=== PATIENT | female | born 1970 | race Caucasian/White ===

== ENCOUNTER 2018-11-29 12:21 | Emergency (ER) | payer BC, OTHER ==
[2018-11-29 12:29] VITALS: BP 137/72
--- NOTE | 2018-11-29 12:31 | UC ---
Throat Pain/Nasal Wilber HPI - HPI Summary HPI Summary: 48 y/o female presents to the urgent care c/o sinus congestion, pressure, and drainage w/ yellowish and bloody drainage for the past 6 days. Pt report she has taken OTC medications, Aleve, Nyquil PO and Alkazelters plus w/o any improvement. Sinus pain is 5/10 which improves w/ the Aleve. Pt has subjective fever at home the first 2 days of symptoms. Pt denies SOB, wheezing, chest pain , abdominal pain, N/V/D. - History of Current Complaint Chief Complaint: UCGeneralIllness Stated Complaint: SINUS COMPLAINT Time Seen by Provider: 11/29/18 12:29 Hx Obtained From: Patient Hx Last Menstrual Period: 2 weeks ago ?: No Onset/Duration: Gradual Onset, Lasting Days - 6 days, Still Present, Worse Since - yesterday Severity: Moderate Pain Intensity: 5 Pain Scale Used: 0-10 Numeric Cough: Nonproductive Associated Signs & Symptoms: Positive: Sinus Discomfort, Nasal Discharge - yellowish and bloody, Fever - subjective at home. Negative: Dysphagia, Wheezing - Epiglottits Risk Factors Epiglottis Risk Factors: Negative - Allergies/Home Medications Allergies/Adverse Reactions: Allergies Allergy/AdvReac Type Severity Reaction Status Date / Time ampicillin Allergy Unknown Verified 11/29/18 12:30 Reaction Details Sulfa (Sulfonamide Allergy See Comment Verified 11/29/18 12:30 Antibiotics) Home Medications: Home Medications Irbesartan 150 mg PO DAILY 11/29/18 [History Confirmed 11/29/18] Levothyroxine TAB* [Synthroid 100 MCG TAB*] 100 mcg PO DAILY 11/29/18 [History Confirmed 11/29/18] Rosuvastatin Calcium 10 mg PO DAILY 11/29/18 [History Confirmed 11/29/18] PMH/Surg Hx/FS Hx/Imm Hx Previously Healthy: Yes Endocrine History: Hypothyroidism, Dyslipidemia Cardiovascular History: Hypertension - Surgical History Surgical History: None - Family History Known Family History: Positive: Hypertension - Social History Occupation: Employed Full-time Lives: With Family Alcohol Use: None Substance Use Type: None Smoking Status (MU): Never Smoked Tobacco Review of Systems All Other Systems Reviewed And Are Negative: Yes Constitutional: Positive: Fever - low subjective fever at home Skin: Positive: Negative Eyes: Positive: Negative ENT: Positive: Sore Throat, Ear Ache - B/L ear pressure, Nasal Discharge - yellowish w/ bloody discharge, Sinus Congestion, Sinus Pain/Tenderness Respiratory: Positive: Cough - dry Cardiovascular: Positive: Negative Gastrointestinal: Positive: Negative Genitourinary: Positive: Negative Motor: Positive: Negative Neurovascular: Positive: Negative Musculoskeletal: Positive: Negative Neurological: Positive: Headache Psychological: Positive: Negative Is Patient Immunocompromised?: No Physical Exam - Summary Physical Exam Summary: Vitals: reviewed General: Well developed, well-nourished female patient with NAD. Head and face: Normocephalic and atraumatic, Positive tenderness over the frontal and maxillary sinuses.. Eyes: PERRLA, EOMI x 2. Normal conjunctiva. No eye discharge. ENT: Ears and TM with normal limits. Nose: edematous and erythematous nasal mucosa with with yellowish discharge and erythematous mucosa. Pharynx with erythema, no exudate. yellowish moderate PND Neck: Supple, no JVD, no carotid bruits and no lymphadenopathy. Lungs: clear, no rales, no rhonchi, no wheezes. CVS: RRR, S1 and S2 present no murmurs or gallops appreciated. Abdomen: soft nontender with positive bowel sounds. Extremities: no edema noted. Neuro: WNL. Skin: warm and dry Triage Information Reviewed: Yes Vital Signs: Initial Vital Signs Temp 97.4 F 11/29/18 12:26 Pulse 70 11/29/18 12:26 Resp 16 11/29/18 12:26 BP 137/72 11/29/18 12:26 Pulse Ox 99 11/29/18 12:26 Throat Pain/Nasal Course/Dx - Course Course Of Treatment: 48 y/o female presents to the urgent care c/o sinus congestion, pressure, and drainage w/ yellowish and bloody drainage for the past 6 days. Pt report she has taken OTC medications, Aleve, Nyquil PO and Alkazelters plus w/o any improvement. Sinus pain is 5/10 which improves w/ the Aleve. Pt has subjective fever at home the first 2 days of symptoms. Pt denies SOB, wheezing, chest pain , abdominal pain, N/V/D. Hx obtained. Pt with 1 week of symptoms getting worse. Pt PCN allergic. Rx doxycycline PO and Flonase nasal spray. Discharge instructions explained to Pt. Advised to Return to the clinic or PCP if symptoms do not improve. D/C instructions explained. Pt understood and agreed with plan of care. - Differential Dx/Diagnosis Differential Diagnosis/HQI/PQRI: Influenza, Laryngitis, Pharyngitis, Sinusitis, URI Provider Diagnosis: Acute bacterial sinusitis Discharge - Sign-Out/Discharge Documenting (check all that apply): Patient Departure - d/c home All imaging exams completed and their final reports reviewed: No Studies - Discharge Plan Condition: Stable Disposition: HOME Prescriptions: DOXYcycline CAP(*) [DOXYcycline 100MG CAP(*)] 100 mg PO BID #14 cap Fluticasone NASAL SPRAY 50MCG* [Flonase NASAL SPRAY 50MCG*] 2 spray BOTH NARES DAILY #1 btl Patient Education Materials: Sinusitis (ED) Referrals: Real Lobo MD [Primary Care Provider] - 3 Days Additional Instructions: 1- Please increase fluid intake and rest. take full course of antibiotic to avoid resistance. Take yogurt w/ probiotics or Culturelle to protect your GI system 2-Use Flonase as directed to help drain fluid. Also buy saline drops to clear sinuses 3-Return to the clinic or PCP in 3 days if symptoms do not improve for further management and treatment - Billing Disposition and Condition Condition: STABLE Disposition: Home
== END 2018-11-29 12:50 | disposition home or self-care (01) ==
LOC: UCEAST 12:21
DX: J01.90 Acute sinusitis, unspecified (principal); B96.89 Other specified bacterial agents as the cause of diseases classified elsewhere; I10 Essential (primary) hypertension; E78.5 Hyperlipidemia, unspecified; E03.9 Hypothyroidism, unspecified; Z88.3 Allergy status to other anti-infective agents; Z88.2 Allergy status to sulfonamides; Z79.899 Other long term (current) drug therapy
CPT/HCPCS: 99212; G0463